=== PATIENT | male | born 1965 | race Caucasian/White ===

== ENCOUNTER 2018-02-27 10:49 | Emergency (ER) | payer BC, OTHER ==
[2018-02-27 11:29] LABS: #Basophils 0.1 thou/uL (0.0-0.2); #Eosinphils 0.1 thou/uL (0.0-0.7); #Lymphocytes 2.9 thou/uL (1.20-3.40); #Monocytes 0.9 thou/uL (0.11-0.59); %Basophils 1.1 % (0.0-1.0); %Eosinophils 1.1 % (0.0-10.0); %Monocytes 9.9 % (0.0-10.0); Hemoglobin 16.3 g/dL (14.0-18.0); Mean Corpuscular HGB CONC 34.7 g/dL (32.0-36.0); Mean Corpuscular Hemoglobin 36.3 pg (27.0-31.0); Mean Platelet Volume 6.5 fL (7.4-10.4); Platelet Count 299 thou/uL (130-400); RBC Distribution Width 12.1 % (11.5-14.5); Red Blood Cell (RBC) Count 4.47 mill/uL (4.70-6.10)
[2018-02-27] MEDS ORDERED: Nitroglycerin 2% Ointment 1 INCH/1 GM Packet ONE (11:44)
[2018-02-27 11:53] LABS: Troponin I Less than 0.010 ng/mL (< 0.028)
[2018-02-27 12:01] LABS: ALT (SGPT) 33 U/L (8-55); AST (SGOT) 24 U/L (5-34); Albumin 4.6 g/dL (3.5-5.0); Alkaline Phosphatase 74 U/L (40-150); Anion Gap 14 mmol/L (10-20); BUN (Urea Nitrogen) 19 mg/dL (8.4-25.7); Bilirubin, Total 0.7 mg/dL (0.2-1.2); CK (CPK) 169 U/L (30-200); Calc. Creatinine Clearance 0 mL/min (70-130); Calcium 10.3 mg/dL (7.8-10.44); Carbon Dioxide 25 mmol/L (22-29); Chloride 105 mmol/L (98-107); Estimated GFR-MDRD 75; Globulin 3.4 g/dL (2.4-3.5); Glucose 89 mg/dL (70-105); Lipase 41 U/L (8-78); Potassium 4.9 mmol/L (3.5-5.1); Sodium 139 mmol/L (136-145)
--- NOTE | 2018-02-27 12:18 | RAD ---
PORTABLE CHEST: HISTORY: Chest pain. COMPARISON: 01/08/2014 FINDINGS: Heart size appears borderline to minimally enlarged, considering the portable technique. The aorta i s mildly tortuous. The lungs are clear of infiltrates. IMPRESSION: Borderline cardiomegaly. Stable appearing chest. POS: [facility]
--- NOTE | 2018-04-07 22:13 | EKG ---
Test Reason : Blood Pressure : / mmHG Vent. Rate : 079 BPM Atrial Rate : 079 BPM P-R Int : 144 ms QRS Dur : 076 ms QT Int : 366 ms P-R-T Axes : 022 032 052 degrees QTc Int : 419 ms Normal sinus rhythm Normal ECG Confirmed by DREA VALENCIA D.O. ([id number]), video tape editor GEORGE HERRERA ([id number]) on 04/07/2018 10:13:11 PM Referred By: Confirmed By:DREA VALENCIA D.O.
== END 2018-02-27 13:09 | disposition home or self-care (01) ==
LOC: ERS 10:49
DX: R07.9 Chest pain, unspecified (principal); I10 Essential (primary) hypertension
CPT/HCPCS: 36415; 71045; 80053; 82550; 82553; 83690; 84484; 85025; 93005; 94760

== ENCOUNTER 2018-02-28 10:58 | Emergency (ER) | payer BC ==
[~2018-02-28 10:58] MED LIST: ISOVUE-370 76%-LOCM 1 ML ONE
[2018-02-28 11:51] LABS: #Basophils 0.1 thou/uL (0.0-0.2); #Eosinphils 0.1 thou/uL (0.0-0.7); #Lymphocytes 2.1 thou/uL (1.20-3.40); #Monocytes 0.5 thou/uL (0.11-0.59); #Neutrophils 4.9 thou/uL (1.40-6.50); %Basophils 0.8 % (0.0-1.0); %Lymphocytes 27.3 % (21.0-51.0); %Monocytes 6.9 % (0.0-10.0); %Neutrophils 64.1 % (42.0-75.0); Hemoglobin 16.3 g/dL (14.0-18.0); Mean Corpuscular HGB CONC 33.7 g/dL (32.0-36.0); Mean Corpuscular Hemoglobin 34.7 pg (27.0-31.0); Mean Platelet Volume 6.9 fL (7.4-10.4); Platelet Count 290 thou/uL (130-400); RBC Distribution Width 12.2 % (11.5-14.5); Red Blood Cell (RBC) Count 4.68 mill/uL (4.70-6.10); White Blood Cell (WBC) Count 7.6 thou/uL (4.8-10.8)
[2018-02-28 12:04] LABS: ALT (SGPT) 34 U/L (8-55); AST (SGOT) 22 U/L (5-34); Albumin 4.4 g/dL (3.5-5.0); Alkaline Phosphatase 58 U/L (40-150); Anion Gap 10 mmol/L (10-20); BUN (Urea Nitrogen) 19 mg/dL (8.4-25.7); Bilirubin, Total 1.1 mg/dL (0.2-1.2); CK (CPK) 124 U/L (30-200); Calc. Creatinine Clearance 0 mL/min (70-130); Calcium 9.9 mg/dL (7.8-10.44); Carbon Dioxide 30 mmol/L (22-29); Chloride 103 mmol/L (98-107); Estimated GFR-MDRD 64; Globulin 3.2 g/dL (2.4-3.5); Glucose 128 mg/dL (70-105); Potassium 4.1 mmol/L (3.5-5.1); Protein, Total 7.6 g/dL (6.0-8.3); Sodium 139 mmol/L (136-145)
[2018-02-28 12:09] LABS: CKMB 1.8 ng/mL (0-6.6); Troponin I Less than 0.010 ng/mL (< 0.028)
--- NOTE | 2018-02-28 12:31 | RAD ---
UPRIGHT PORTABLE CHEST 1 VIEW: HISTORY: A 52-year-old male with a history of chest pain for 3 days. COMPARISON: 02/27/18. FINDINGS: The right costophrenic angle is not completely included on this radiograph. Heart size is normal. T he lungs are clear. IMPRESSION: No acute intrathoracic disease. Stable from prior 02/27/18 study yesterday. POS: [facility]
[2018-02-28] MEDS ORDERED: Morphine 4 MG/ML VIAL ONE (13:44)
[2018-02-28] MEDS ORDERED: cefTRIAXone\\ROCEPHIN 2 GM VIAL ONE (13:44)
--- NOTE | 2018-02-28 14:47 | CT ---
CT ANGIOGRAM THORAX WITH IV CONTRAST AND 3D RECONSTRUCTIONS: Date: 02-28-18 History: Right upper chest pain, onset three days ago. FINDINGS: No filling defects are seen in the pulmonary arteries to suggest a pulmonary embolus. Thoracic aorta is normal in caliber without evidence of an aortic dissection. Minimal vascular calcifications are se en in the aortic arch. A small eccentric hypodense focus is seen in within the lateral aspect of the distal tracheal above t he level of the shira which measures 11 mm x 5 mm. There is no evidence of lymphadenopathy. There is mild scarring seen at the inferior aspect of the right middle lobe. There is a nodular paren chymal opacity seen in the right lower lobe with adjacent linear and additional smaller nodular densi ties. Findings could be related to infectious process, but follow up evaluation is recommended to exc lude neoplastic process. The largest nodular density in this region measures approximately 9 mm. There are small pleural based nodular density adjacent to the major fissure which may be related to n odular pleural thickening. The left lung is clear. There is no evidence of a pleural effusion. Visualized upper abdomen has a normal CT appearance. Degenerative changes are seen in the spine. IMPRESSION: 1. Nodular densities in the right lung base with associated linear densities as well. Findings could be attributable to infectious or inflammatory process given localized findings, but neoplastic proces s certainly cannot be excluded, and a follow up CT examination in 4 months is recommended. 2. No CT evidence of a pulmonary embolus. 3. Small eccentric hypodense focus within the lateral aspect of the distal trachea. I am unsure if th is is related to secretions or related to a nodule within the trachea. This can also be re-evaluated on follow up examination, or depending upon clinical concern, direct visualization may be helpful. 4. Above findings discussed with Dr. Gonzalez in the Emergency Department on 02-28-18 at 1331 hours. POS: [facility]
== END 2018-02-28 15:02 | disposition home or self-care (01) ==
LOC: ERS 10:58
DX: J18.9 Pneumonia, unspecified organism (principal); I10 Essential (primary) hypertension
CPT/HCPCS: 71045; 71275; 80053; 82550; 82553; 84484; 85025; 93005; 96374; 96375; J0696; J2270

== ENCOUNTER 2023-10-25 17:00 | Outpatient (CLI) | payer SELFPAY | END 2023-10-25 17:01 | disposition home or self-care (01) | LOC: SLEEPLAB 17:00 | PROVIDERS: ATTEND Registered Nurse | DX: G47.33 Obstructive sleep apnea (adult) (pediatric) (principal); R53.83 Other fatigue; G47.61 Periodic limb movement disorder; E66.9 Obesity, unspecified; R06.83 Snoring; G47.00 Insomnia, unspecified; R35.1 Nocturia; I10 Essential (primary) hypertension; Z68.41 Body mass index [BMI] 40.0-44.9, adult | CPT/HCPCS: 95800 ==